=== PATIENT | female | born 1970 | race Caucasian/White ===

== ENCOUNTER → 2020-09-08 | Outpatient (CLI) | payer BC ==
[~2020-09-08] VITALS: Ht 167.6 cm; Wt 77.1 kg
[~2020-09-08] MED LIST: ALDACTONE100 MG PO; ESSENTIAL DAIL1 EACH PO; IBUPROFEN 200200 M1 PO; LEVO-T25 MCG PO; LORTAB; LYSINE1000 MG PO; PROTONIX40 M2 PO; VENTOLIN17 GM IH; VITAMIN C1000 MG PO; ZOVIA 1-35E1 EACH PO; hormone cream; vitamin d
--- NOTE | ~2020-09-08 | HPC ---
[facility] [place] [address] PAIN MANAGEMENT CONSULTATION Name: KENA YAO Room #: REG YASMANY Suhas#: [id number] Admission: 09/08/20 Attend Phys: Patrick Renner DO Discharge: Date of : 74 Report #: [id number] THIS REPORT FOR: cc: aBrb Mays MD, Jennifer MD Johnson, James E. DO ~ DATE OF SERVICE: 09/08/2020 REFERRING PHYSICIAN: Dr. Jarrett Coffey. CHIEF COMPLAINT: Low back pain, right buttock pain. HISTORY OF PRESENT ILLNESS: As you know, the patient is a 50-year-old female with longstanding history of low back pain, right buttock pain, also complains of neck pain, bilateral shoulder pain that began several years ago. The patient denies any specific injury or trauma that may have led to symptom development. The patient reports that it may have been as long as 18 years ago when her symptoms began. She describes the back pain as constant, aching, stiffness and occasional shooting and stabbing when she bends over. She has trialled flyq-vzx-tlifomi medications without improvement, she is even trial rest, relaxation. She was trialled on Celebrex in the past without relief. She has sought chiropractic manipulation and physical therapy without benefit. She reports no specific injury or trauma that may have led to symptom development. She has recently restarted physical therapy. She has been in physical therapy for 4 weeks going twice a week with minimal improvement. She sought evaluation per the request of her primary care physician with Dr. Jarrett Coffey neurosurgeon with [facility]. The patient was evaluated and advised to trial conservative treatment options before looking toward surgical options. She was subsequently referred to our clinic to discuss epidural injections and possible right SI joint injections. The patient indicates today pain is continuous and constant with intermittent exacerbations. She states her pain is burning, shooting, aching and tender when describing pain places current pain score of 4-5/10, daily average at 5-6/10. Worst pain has been is 8/10. The patient states her pain is exacerbated with standing, lifting and sitting, improves with ibuprofen and decreased activity. She has been referred to our service to discuss interventional treatment options. PAST MEDICAL HISTORY: 1. Gastroesophageal reflux disease. 2. Hypothyroidism. 3. Seasonal allergies. PAST SURGICAL HISTORY: Hysterectomy with bladder sling. [facility] [address] [place] [address] PAIN MANAGEMENT CONSULTATION Name: KENA YAO Room #: REG CLKirill Dai#: [id number] Admission: 09/08/20 Attend Phys: Patrick Renner DO Discharge: Date of : 74 Report #: [id number] SOCIAL HISTORY: The patient denies tobacco, alcohol, IV or illicit drug use. 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 She is working, not receiving workmen's compensation nor is trying to obtain disability benefits. She is not in litigation in regard to pain. She is unaccompanied at today's visit. REVIEW OF SYSTEMS: Positive for peptic ulcer disease, numbness and tingling sensations in the right lower extremity, chronic low back pain, headaches and fatigue. All other review of systems negative per 12-point review of systems other than those listed in history of present illness. Pain impact score 31/70 indicating moderate interference of daily activities secondary to pain. ALLERGIES: NO KNOWN DRUG ALLERGIES. CURRENT MEDICATIONS: Ibuprofen 200 mg 4 times a day, vitamin D 5000 units per week, lysine 1000 mg per day, ascorbic acid 1000 mg once a day, multivitamin 1 tablet per day, levothyroxine 25 mcg per day, spironolactone 100 mg once a day, pantoprazole 40 mg once a day. IMAGING STUDIES: MRI lumbar spine obtained on 05/08/2020 shows L1-L2 mild facet arthropathy, no significant central canal nor neural foraminal stenosis; L2-L3 unremarkable; L3-L4 small circumferential disk bulge, mild facet arthropathy and ligamentum flavum thickening, no central canal nor neural foraminal stenosis; L4-L5 mild facet arthropathy, no significant central canal nor neural foraminal stenosis. L5-S1, small circumferential disk bulge, mild facet arthropathy. No central canal nor neural foraminal stenosis. There is reactive endplate edema in and about the L5-S1 level. PHYSICAL EXAMINATION: VITAL SIGNS: Blood pressure 114/80, pulse 73, respiratory rate 16 and unlabored. The patient is 100% on room air. Height 5 feet 6 inches tall, weight 170 pounds, BMI calculated 27.5. GENERAL: Well-developed, well-nourished, well-hydrated 50-year-old female appearing stated age. She is in no acute distress, awake, alert and oriented x 3. Current pain score is rated at 5/10. HEENT: Normocephalic and atraumatic. Pupils are equal, round and reactive. Speech is fluent. Extraocular muscles are intact. The patient is wearing a mask in compliance with COVID-19 regulations. RESPIRATORY: Good respiratory effort. Clear to auscultation, able to complete sentences without difficulty. No cough or wheezing. EXTREMITIES: Show no clubbing, no cyanosis, no edema. MUSCULOSKELETAL: Lower extremity strength appears equal and symmetrical 5/5, intact to light touch from L1 through S2 dermatomes. Seated straight leg raising negative. Supine straight leg raising equivocal right, negative left. Ankle clonus negative. Babinski is negative. Muscle bulk and tone equal and [facility] [address] [place] [address] PAIN MANAGEMENT CONSULTATION Name: KENA YAO Room #: REG YASMANY Suhas#: [id number] Admission: 09/08/20 Attend Phys: Patrick Renner DO Discharge: Date of : 74 Report #: [id number] symmetrical when comparing lower extremities. Lumbar provocation testing is met with slight increase in pain mainly with lateral flexion and rotation to the right. ASSESSMENT: 1. Chronic low back pain. 2. Mild facet arthropathy of the lumbar spine. 3. Small circumferential disk bulge of the lumbar spine. 4. Chronic intractable pain. PLAN: 1. The patient has been referred to our service by her neurosurgeon to discuss the possibility of undergoing interventional treatments. The patient is complaining of pain in the low back and right lower extremity that has been present for almost 18 years. We have reviewed the patient's MRI and pleased to advise the patient there is only mild findings. Within the imaging, there is no significant neural foraminal stenosis nor central canal stenosis. She has a small circumferential disk bulge at the L5-S1 level, but does have some reactive edema on the endplates at L5 and S1, which is the likely source of the patient's axial back pain. This may be causing some intermittent irritation of the nerve roots as they exit the site leading to the symptoms on the right leg. The patient has sought evaluation through Neurosurgery and advised no surgical options. She was referred to our clinic to trial epidural injections. We have advised the patient of the risks and the benefits of the procedure and also advised the patient that third alliance party payer restrictions, require authorization before the patient could undergo an injection. Authorization could take anywhere from 4-7 working days, we will begin this process immediately. 2. No medication changes made at today's visit. The patient will continue current medical therapy as prior prescribed. 3. We plan to see the patient back in followup visit once we have achieved authorization for her to undergo a lumbar epidural injection under fluoroscopic guidance per the request of her neurosurgeon, Dr. Jarrett Coffey. The patient can contact our clinic over the next couple of days to check on progress of the authorization. We wish to thank, Dr. Jarrett Coffey, for the opportunity to see this patient in consultation. We will keep you apprised of her response to treatment as we address suspected lumbar radiculopathy. Again, we wish to thank you for the opportunity to see the patient in consultation. By: [id number] Patrick Renner DO /apoorva
[2020-09-08 09:26] VITALS: BP 114/80
--- NOTE | 2020-09-08 09:46 | NUR ---
Pain Clinic Assessment: 1. History of Osteoarthritis: DENIES History of Rheumatoid Arthritis: DENIES 2. Height: 5 ft. 6 in. 167.6 cm. Weight: 170.0 lb. oz. 77.112 kg. Patient's BMI: 27.5 3. Vital Signs: BP: 114/80 Pulse: 73 Resp: 16 Temp: 02 Sat: 100 ECG Mon: 4. Pain Intensity: 5 5. Fall Risk: Dizziness: Y Needs help standing or walking: N Fallen in the last 3 months: N Fall risk comments: 6. Patient on Blood Thinner: None 7. History of Hypertension: N 8. Opioid Therapy greater than 6 weeks: N Opiate Contract Signed: 9. Risk Assessment Tool Provided: 10. Functional Assessment Tool: 11. Recreational Drug Use: Never Drug Type: Tobacco Use: Never Smoker Tobacco Type: Amount or Packs/day: How Many Years: Alcohol Use: Yes Frequency: Special Occasions Quant:
== END ==
LOC: PAIN 08-25 06:49
PROVIDERS: ATTEND Anesthesiology Pain Medicine
DX: G89.29 Other chronic pain (principal); M51.26 Other intervertebral disc displacement, lumbar region; M47.816 Spondylosis without myelopathy or radiculopathy, lumbar region; K21.9 Gastro-esophageal reflux disease without esophagitis; E03.9 Hypothyroidism, unspecified; Z88.8 Allergy status to other drugs, medicaments and biological substances; Z68.27 Body mass index [BMI] 27.0-27.9, adult; Z79.899 Other long term (current) drug therapy; Z79.891 Long term (current) use of opiate analgesic

== ENCOUNTER → 2020-10-21 | Outpatient (CLI) | payer BC ==
[~2020-10-21] VITALS: Ht 167.6 cm; Wt 80.5 kg
[2020-10-21 12:27] VITALS: BP 110/68
--- NOTE | 2020-10-21 12:35 | NUR ---
Pain Clinic Assessment: 1. History of Osteoarthritis: DENIES History of Rheumatoid Arthritis: DENIES 2. Height: 5 ft. 6 in. 167.6 cm. Weight: 177.4 lb. oz. 80.468 kg. Patient's BMI: 28.6 3. Vital Signs: BP: 110/68 Pulse: 88 Resp: 14 Temp: 02 Sat: 96 ECG Mon: 4. Pain Intensity: 5 5. Fall Risk: Dizziness: N Needs help standing or walking: N Fallen in the last 3 months: N Fall risk comments: 6. Patient on Blood Thinner: None 7. History of Hypertension: N 8. Opioid Therapy greater than 6 weeks: N Opiate Contract Signed: 9. Risk Assessment Tool Provided: 10. Functional Assessment Tool: 11. Recreational Drug Use: Never Drug Type: Tobacco Use: Never Smoker Tobacco Type: Amount or Packs/day: How Many Years: Alcohol Use: Yes Frequency: Special Occasions Quant:
--- NOTE | 2020-10-21 14:14 | HPC ---
[facility] [place] [address] PAIN MANAGEMENT CONSULTATION Name: KENA YAO Room #: REG YASMANY Suhas#: [id number] Admission: 10/21/20 Attend Phys: Patrick Renner DO Discharge: Date of : 74 Report #: [id number] THIS REPORT FOR: cc: Sheba Vasquez MD, Ami MD Johnson, James E. DO ~ DATE OF SERVICE: 10/21/2020 REFERRING PHYSICIAN: Dr. Jarrett Coffey. PRIMARY CARE PHYSICIAN: Barb Mays MD CHIEF COMPLAINT: Low back pain, right buttock and right leg pain. HISTORY OF PRESENT ILLNESS: As you know, the patient is a 50-year-old female who was referred to our clinic by her neurosurgeon to trial conservative treatment options to address lumbar radiculopathy. She was complaining of low back pain, right lower extremity pain with paresthesias at that time and established today's appointment to undergo lumbar epidural injection under fluoroscopic guidance. The patient has received authorizations to undergo the epidural injection and has been able to clear her schedule to be able to go home and rest and relax after today's procedure for the next 24 hours. The patient reports today pain level of 5/10. States the pain is exacerbated with standing, lifting, improves with medications. She describes the pain as constant, burning and shooting, radiating from the low back down the right leg. She returns today in followup visit for the first in a series of lumbar epidural injections per the request of her neurosurgeon. ALLERGIES: No known drug allergies. CURRENT MEDICATIONS: Ibuprofen, vitamin D, lysine, ascorbic acid, multivitamin, levothyroxine, spironolactone, pantoprazole. SOCIAL HISTORY: The patient denies tobacco, alcohol, IV or illicit drug use. 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 IMAGING: No new imaging available. PHYSICAL EXAMINATION: VITAL SIGNS: Blood pressure 110/68, pulse 88, respiratory rate 14 and unlabored. The patient is 96% on room air. Height 5 feet 6 inches tall, weight 177.4 pounds, BMI calculated 28.6. GENERAL: Well-developed, well-nourished, well-hydrated 50-year-old female appearing stated age, pain is rated today at 5/10. HEENT: Normocephalic and atraumatic. Pupils are equal, round and reactive. The patient is wearing a face mask in compliance with COVID-[address] [address] PAIN MANAGEMENT CONSULTATION Name: KENA YAO Room #: REG [facility]#: [id number] Admission: 10/21/20 Attend Phys: Patrick Renner DO Discharge: Date of : 74 Report #: [id number] EXTREMITIES: Show no clubbing, no cyanosis, no edema. MUSCULOSKELETAL: Lower extremity strength equal and symmetrical 5/5. Muscle bulk and tone equal and symmetrical in comparing lower extremities. Seated straight leg raising negative. Supine straight leg raising equivocal on right. The patient does have a mildly antalgic right lower extremity gait. Ankle clonus negative. Babinski is negative. ASSESSMENT: 1. Chronic low back pain. 2. Facet arthropathy of the lumbar spine. 3. Circumferential disk bulge of the lumbar spine. 4. Chronic intractable pain. PLAN: 1. The patient returns today in followup visit per the request of her neurosurgeon to undergo a lumbar epidural injection under fluoroscopic guidance to address suspected lumbar radiculopathy involving low back and right lower extremity. The patient has been advised of the risks and the benefits of a lumbar epidural injection. These risks include, but are not necessarily limited to; bleeding, bruising, infection, worsening of pain, no relief of pain, temporary or permanent muscle weakness, temporary or permanent nerve damage, possible paralysis, post-dural puncture headache and . The patient states understood and wished to proceed. 2. No medication changes made at today's visit. The patient will continue current medical therapy as prior prescribed. 3. We plan to see the patient back in followup visit on an as needed basis for possible next in the series of lumbar epidural injections. We are hopeful the patient will see good and prolonged benefit with this first in the series. PROCEDURE NOTE DESCRIPTION OF PROCEDURE: L5-S1 right paramedian epidural steroid injection under fluoroscopic guidance. This is the first procedure of the first series that the patient is undergoing. After obtaining written consent, the patient was taken back to the fluoroscopy suite, placed in a prone position with pillow under the abdomen to decrease lumbar lordosis. The skin overlying the lumbosacral area was then prepped and draped in aseptic fashion. The L5-S1 vertebral interspace was then identified by AP fluoroscopy. The skin and subcutaneous tissue overlying the target site of injection was anesthetized with 3 mL 1% lidocaine. A(n) 20-gauge 3-1/2 inch Tuohy needle was then advanced under fluoroscopic guidance towards the epidural space using a right paramedian approach. The epidural space was identified using loss of resistance to air technique. After [address] [address] PAIN MANAGEMENT CONSULTATION Name: KENA YAO Room #: REG YASMANY Dai#: [id number] Admission: 10/21/20 Attend Phys: Patrick Renner DO Discharge: Date of : 74 Report #: [id number] negative aspiration for heme or cerebrospinal fluid, a total of 1 mL of Omnipaque was injected. A lumbar epidurogram was confirmed using both AP and lateral fluoroscopy. After negative aspiration for heme or cerebrospinal fluid, 5 mL of a solution containing 2 mL 40 mg per mL, 80 mg total triamcinolone along with 3 mL of lidocaine 1% was injected in increments. Contrast spread was noted post-epidural space. The needle was then retracted approximately half way and needle tract flushed with 1 mL of lidocaine. Needle was then removed. There were no apparent sensory or motor deficits in the lower extremity following the procedure. A sterile bandage was placed over the injection site. The heart rate, pulse, oximetry and blood pressure were continuously monitored after the procedure. There were no apparent complications. The patient tolerated the procedure well and was carefully escorted to the recovery room in stable condition. There were no apparent complications. After meeting discharge criteria, the patient was then discharged home. <ELECTRONICALLY SIGNED> By: Patrick Renner DO 10/21/20 1414 1301 [id number] Patrick Renner DO /nt
== END | disposition home or self-care (01) ==
LOC: PAIN 09-22 06:51
PROVIDERS: ATTEND Anesthesiology Pain Medicine
DX: M54.5 Low back pain (principal); G89.29 Other chronic pain; M51.36 Other intervertebral disc degeneration, lumbar region; M47.896 Other spondylosis, lumbar region; Z98.890 Other specified postprocedural states; Z79.899 Other long term (current) drug therapy